=== PATIENT | female | born 1995 | race Caucasian/White ===

== ENCOUNTER 2019-01-14 09:44 | Emergency (ER) | payer OTHER ==
[2019-01-14 10:31] LABS: % BASOPHILS 2.6 % (0.0-2.0); % EOSINOPHILS 0.2 % (0.0-5.0); % LYMPHOCYTES 12.4 % (20.0-50.0); % NEUTROPHILS 77.8 % (40.0-80.0); BASOPHILE ABSOLUTE 0.3 Th/cumm (0-0.2); HEMOGLOBIN 14.3 gm/dL (12-16); LYMPHOCYTE ABSOLUTE 1.5 Th/cmm (1.5-3.0); MEAN CELL VOLUME 93.7 fl (81-100); MEAN CORPUSCULAR HEMOGLOBIN 31.1 pg (27.0-31.0); MEAN CORPUSCULAR HGB CONC 33.2 pg (28.0-36.0); MONOCYTE ABSOLUTE 0.8 Th/cmm (0.3-1.0); NEUTROPHILE ABSOLUTE 9.5 Th/cmm (1.8-8.0); PLATELET COUNT 335 Th/cmm (150-400); RED BLOOD COUNT 4.59 Mil/cmm (3.80-5.10); RED CELL DISTRIBUTION WIDTH 12.5 % (11.5-20.0); WHITE BLOOD COUNT 12.1 Th/cmm (4.8-10.8)
[2019-01-14 10:39] LABS: INR 1.02 (0.5-1.4)
[2019-01-14] MEDS ORDERED: Sodium Chloride 0.45% 1,000 ML IV ONE (10:43)
[2019-01-14 10:44] LABS: ALBUMIN 5.2 gm/dL (3.7-5.3); ALKALINE PHOSPHATASE 51 U/L (34-104); ANION GAP 17.4 (7.0-16.0); BILIRUBIN,TOTAL 1.2 mg/dL (0.3-1.0); BUN - UREA NITROGEN 22 mg/dL (7-25); CALCIUM SERUM 10.3 mg/dL (8.6-10.3); CARBON DIOXIDE 20.8 mEq/L (21.0-31.0); CHLORIDE 99 mEq/L (98-107); CREATININE - SERUM 0.8 mg/dL (0.6-1.2); GFR AFRICAN-AMERICAN > 60.0 ml/min (>90); GFR NON AFRICAN-AMERICAN > 60.0 ml/min; GLUCOSE 105 mg/dL (70-105); POTASSIUM SERUM 3.2 mEq/L (3.5-5.1); SGOT 13 U/L (13-39); SGPT/ALT 9 U/L (7-52); SODIUM SERUM 134 mEq/L (136-145); TOTAL PROTEIN,SERUM 7.8 gm/dL (6.0-8.3)
[2019-01-14] MEDS ORDERED: Potassium Phosphate 20 MMOLE in Sodium Chloride 0.9% 250 ML IV ONE (10:50)
[2019-01-14] MEDS ORDERED: Haloperidol Lactate 5 mg/mL 1mL Vial IVP ONE (10:52)
--- NOTE | 2019-01-14 10:52 | ED Physician Chart ---
ED Chief Complaint/HPI - Patient Information Date Seen:: 01/14/19 Time Seen:: 10:00 Chief Complaint:: VOMITING History of Present Illness:: THIS IS A 23 YO FEMALE WHO STATES THAT SHE HAS NOT BEEN EATING FOR TWO DAYS AND HAS VOMITED ABOUT FIFTY TIMES. SHE STATES THAT SHE HAS A SYNDROME OF VOMITING FROM SMOKING THC. SHE DENIES PREVIOUS OPERATIONS. SHE DENIES . she stated that she wants iv fluids, morphine and haldol iv. Allergies:: Allergies Allergy/AdvReac Type Severity Reaction Status Date / Time sulfamethoxazole Allergy Verified 01/14/19 09:52 [From Bactrim] trimethoprim [From Bactrim] Allergy Verified 01/14/19 09:52 Vitals:: Vital Signs - 8 hr 01/14/19 01/14/19 09:52 09:55 Temp 97.5 F 97.5 F HR 72 74 RR 16 16 BP 123/88 123/88 O2 Sat % 98 99 Historian:: Patient Review:: Nurse's Note Reviewed ED Review of Systems - Review of Systems General/Constitutional: No fever, No chills, No weight loss, No weakness, No diaphoresis, No edema, No loss of appetite Skin: No skin lesions, No rash, No bruising Head: No headache, No light-headedness Eyes: No loss of vision, No pain, No diplopia ENT: No earache, No nasal drainage, No sore throat, No tinnitus Neck: No neck pain, No swelling, No thyromegaly, No stiffness, No mass noted Cardio Vascular: No chest pain, No palpitations, No PND, No orthopnea, No edema Pulmonary: No SOB, No cough, No sputum, No wheezing GI: No nausea, No vomiting, No diarrhea, No pain, No melena, No hematochezia, No constipation, No hematemesis G/U: No dysuria, No frequency, No hematuria Musculoskeletal: No bone or joint pain, No back pain, No muscle pain Endocrine: No polyuria, No polydipsia Psychiatric: No prior psych history, No depression, No anxiety, No suicidal ideation Hematopoietic: No bruising, No lymphadenopathy Allergic/Immuno: No urticaria, No angioedema Neurological: No syncope, No focal symptoms, No weakness, No paresthesia, No headache, No seizure, No dizziness, No confusion, No vertigo ED Past Medical History - Past Medical History Obtainable: Yes Past Medical History: No significant medical hx Family History: None Social History: Smoker (smokes thc), No Alcohol, No Drug Use Surgical History: None Psychiatricy History: None Medication: Reviewed Family Medical History - Family Member Mother History Unknown: Yes ED Physical Exam - Physical Examination General/Constitutional: Awake, Well-developed, well-nourished, Alert, No distress, GCS 15, Non-toxic appearing, Ambulatory Other Gen/Cons comments:: RESTLESS AND COOPERATIVE Head: Atraumatic Eyes: Lids, conjuctiva normal, PERRL, EOMI Skin: Nl inspection, No rash, No skin lesions, No ecchymosis, Well hydrated, No lymphadenopathy ENMT: External ears, nose nl, Nasal exam nl, Lips, teeth, gums nl Neck: Nontender, Full ROM w/o pain, No JVD, No nuchal rigidity, No bruit, No mass, No stridor Respiratory: Nl effort/Exclusion, Clear to Auscultation, No Wheeze/Rhonchi/Rales Cardio Vascular: RRR, No murmur, gallop, rubs, NL S1 S2 GI: No tenderness/rebounding/guarding (GUARDING AND TENDER DIFFUSELY), No organomegaly, No hernia, Normal BS's, Nondistended, No mass/bruits, No McBurney tenderness : No CVA tenderness Extremities: No tenderness or effusion, Full ROM, normal strength in all extremities, No edema, Normal digits & nails Neuro/Psych: Alert/oriented, DTR's symmetric, Normal sensory exam, Normal motor strength, Judgement/insight normal, Mood normal, Normal gait, No focal deficits Misc: Normal back, No paraspinal tenderness ED Labs/Radiology/EKG Results - Lab Results Results: Laboratory Tests 01/14/19 01/14/19 10:15 10:15 WBC 12.1 H RBC 4.59 Hgb 14.3 Hct 43.0 MCV 93.7 MCH 31.1 H MCHC Differential 33.2 RDW 12.5 Plt Count 335 MPV 8.9 Neutrophils % 77.8 Lymphocytes % 12.4 L Monocytes % 7.0 Eosinophils % 0.2 Basophils % 2.6 H PT 10.6 INR 1.02 PTT (Actin FS) 26.7 Abnormal Lab Results 01/14/19 01/14/19 01/14/19 10:15 10:15 10:15 WBC RBC Hgb Hct MCV MCH MCHC Differential RDW Plt Count MPV Neutrophils % Lymphocytes % Monocytes % Eosinophils % Basophils % PT 10.6 INR 1.02 PTT (Actin FS) 26.7 Sodium Potassium Chloride Carbon Dioxide Anion Gap BUN Creatinine Est GFR ( Amer) Est GFR (Non-Af Amer) BUN/Creatinine Ratio Glucose Calcium Total Bilirubin AST ALT Alkaline Phosphatase Troponin I < 0.01 L Total Protein Albumin Globulin Albumin/Globulin Ratio TSH 0.41 Serum , Qual 01/14/19 01/14/19 01/14/19 10:15 10:15 10:15 WBC 12.1 H RBC 4.59 Hgb 14.3 Hct 43.0 MCV 93.7 MCH 31.1 H MCHC Differential 33.2 RDW 12.5 Plt Count 335 MPV 8.9 Neutrophils % 77.8 Lymphocytes % 12.4 L Monocytes % 7.0 Eosinophils % 0.2 Basophils % 2.6 H PT INR PTT (Actin FS) Sodium 134 L Potassium 3.2 L Chloride 99 Carbon Dioxide 20.8 L Anion Gap 17.4 H BUN 22 Creatinine 0.8 Est GFR ( Amer) > 60.0 Est GFR (Non-Af Amer) > 60.0 BUN/Creatinine Ratio 27.5 Glucose 105 Calcium 10.3 Total Bilirubin 1.2 H AST 13 ALT 9 Alkaline Phosphatase 51 Troponin I Total Protein 7.8 Albumin 5.2 Globulin 2.6 Albumin/Globulin Ratio 2.0 H TSH Serum , Qual NEGATIVE ED Assessment - Assessment General Assessment: drug seeking and vomiting ED Septic Shock - . Is Septic Shock (SBP<90, OR Lactate>4 mmol\L) present?: No - <6hrs of presentation: Vital Signs: Vital Signs - 8 hr 01/14/19 01/14/19 09:52 09:55 Temp 97.5 F 97.5 F HR 72 74 RR 16 16 BP 123/88 123/88 O2 Sat % 98 99 ED Reassessment (Disposition) - Reassessment Reassessment Condition:: Improved - Diagnosis Diagnosis:: vomiting drug seeker - Patient Disposition Discharge/Transfer:: Against Medical Advice Condition at Disposition:: Improved
[2019-01-14] MEDS ORDERED: KCL 20mEq/100mL Premix 20 MEQ/100 ML PIGGYBACK IV ONE ×3 (10:55→11:15)
[2019-01-14] MEDS ORDERED: Haloperidol Lactate 5 mg/mL 1mL Vial ONE (11:09)
== END 2019-01-14 12:18 | disposition left against medical advice (07) ==
LOC: ER 09:44
DX: R11.10 Vomiting, unspecified (principal); F17.200 Nicotine dependence, unspecified, uncomplicated; Z72.89 Other problems related to lifestyle; Z88.1 Allergy status to other antibiotic agents; Z88.2 Allergy status to sulfonamides
CPT/HCPCS: 99283; 96361; 96372 ×2; 96374; 96375; 84484; 36415; 84443; 85025; 85610; 85730; 84703; 80053; 87040 ×2; J3480 ×2; J1885; J2405; J0696; J1630; Z7502